=== PATIENT | female | born 1930 | race Caucasian/White ===

== ENCOUNTER 2019-01-28 20:47 | Emergency (ER) | payer MEDICARE, BC ==
[~2019-01-28] VITALS: Ht 165.1 cm; Wt 54.4 kg
--- OUTSIDE RECORDS SUMMARY | 2019-01-28 20:50 | XMS REPORT ---
Author [facility] Address Unknown Phone Unavailable Care Team Providers Care Bellows Filler Name Role Phone Unavailable Unavailable Payers Payer Name Policy Type Policy Number Effective Date Expiration Date Problems This patient has no known problems. Allergies, Adverse Reactions, Alerts Allergy Name Allergy Type Status Severity Reaction(s) Onset Date Inactive Date Treating Clinician Comments Penicillins DA Active DC 2018-07-25 00:00:00 lidocaine DA Active U 2018-07-25 00:00:00 ciprofloxacin DA Active U 2018-07-25 00:00:00 Penicillins DA Active DC 2018-03-16 00:00:00 lidocaine DA Active U 2018-03-16 00:00:00 ciprofloxacin DA Active U 2018-03-16 00:00:00 Penicillins DA Active DC 2015-08-28 00:00:00 lidocaine DA Active U 2015-07-24 00:00:00 ciprofloxacin DA Active U 2015-07-24 00:00:00 Medications This patient has no known medications. Results Test Description Test Time Test Comments Text Results Atomic Results Result Comments PROTHROMBIN TIME 2018-07-27 09:04:00 PROTHROMBIN TIME PATIENT (test code=PTP) 17.4 seconds 9.0-14.0 INTERNATIONAL NORMAL RATIO (test code=INR) 1.4 0.8-1.2 The therapeutic range for oral anticoagulant therapy formost indications is an international normalized ratio (INR)of between 2.0 and 3.0. The recommended therapeutic INRrange for various clinical situations is listed below: Clinical Situation INR range Pulmonary e mbolism treatment (2.0-3.0)Venous thrombosis treatmentVenous thrombosis prophylaxis (high risk surgery)Prevention of systemic embolism from: Acute myocardial infarction Valvular heart disease Atrial fibrillation Mechanical prosthetic heart valves (2.5-3.5) IS PATIENT ON ANTICOAGULANTS? YLIST ANTICOAGULANTS COUMADINCBC W/AUTO DIFF 2018-07-27 07:18:00* Test Item Value Reference Range Comments WHITE BLOOD CELL (test code=WBC) 5.8 K/mm3 4.5-12.5 RED BLOOD CELL (test code=RBC) 3.08 mill/mm3 3.7-5.2 HEMOGLOBIN (test code=HGB) 9.3 gram/dL 11.5-15.5 HEMATOCRIT (test code=HCT) 29.2 % 36.0-46.0 MEAN CELL VOLUME (test code=MCV) 94.8 fL 80-98 MEAN CELL HGB (test code=MCH) 30.2 picogram 27.0-33.0 MEAN CELL HGB CONCETRATION (test code=MCHC) 31.8 gram/dL 33.0-36.0 RED CELL DISTRIBUTION WIDTH (test code=RDW) 14.3 % 11.6-16.2 RED CELL DISTRIBUTION WIDTH SD (test code=RDW-SD) 49.2 fL 37.0-51.0 PLATELET COUNT (test code=PLT) 203 K/mm3 150-450 MEAN PLATELET VOLUME (test code=MPV) 10.7 fL 6.7-11.0 NEUTROPHIL % (test code=NT%) 55.4 % 39.0-69.0 IMMATURE GRANULOCYTE % (test code=IG%) 0.3 % 0.0-5.0 LYMPHOCYTE % (test code=LY%) 32.1 % 25.0-55.0 MONOCYTE % (test code=MO%) 10.2 % 0.0-10.0 EOSINOPHIL % (test code=EO%) 1.7 % 0.0-5.0 BASOPHIL % (test code=BA%) 0.3 % 0.0-1.0 NUCLEATED RBC % (test code=NRBC%) 0.0 % 0-0 NEUTROPHIL # (test code=NT#) 3.18 K/mm3 1.8-7.7 IMMATURE GRANULOCYTE # (test code=IG#) 0.02 x10 3/uL 0-0.03 LYMPHOCYTE # (test code=LY#) 1.85 K/mm3 1.0-5.0 MONOCYTE # (test code=MO#) 0.59 K/mm3 0-0.8 EOSINOPHIL # (test code=EO#) 0.10 K/mm3 0.0-0.5 BASOPHIL # (test code=BA#) 0.02 K/mm3 0.0-0.2 NUCLEATED RBC # (test code=NRBC#) 0.00 K/mm3 0.0-0.1 MANUAL DIFF REQUIRED (test code=MDIFF) NO BASIC METABOLIC [id number] 07:12:00* Test Item Value Reference Range Comments SODIUM (test code=NA) 142 mmol/L 136-145 POTASSIUM (test code=K) 4.4 mmol/L 3.5-5.1 CHLORIDE (test code=CL) 112.0 mmol/L 98-107 CARBON DIOXIDE (test code=CO2) 25.0 mmol/L 21-32 ANION GAP (test code=GAP) 9.4 10-20 GLUCOSE (test code=GLU) 86 mg/dL 74-106 BLOOD UREA NITROGEN (test code=BUN) 23 mg/dL 7-18 GLOMERULAR FILTRATION RATE (test code=GFR) > 60 mL/min >=60 Estimated GFR by using Modified MDRD formula.Chronic kidney disease is defined as either kidney damageor GFR <60 mL/min/1.73 m2 for >3 months. CREATININE (test code=CREAT) 0.70 mg/dL 0.55-1.02 Note change in reference range due to change in reagent. BUN/CREATININE RATIO (test code=BUN/CREA) 31.4 10-20 CALCIUM (test code=CA) 8.7 mg/dL 8.5-10.1 - RETROPERITONEAL [id number] 21:30:00 Name: LAMINE LAUGHLIN [facility] : 1930 Age/S: 88 / F [address] [facility]: [id number] Loc: FLO [place] [address] Phys: DandreHoracio Acct: [id number] Dis Date: Status: ADM IN PHONE #: [phone] Exam Date: 07/26/20181954 FAX #: [phone] Reason: hematuria EXAMS: CPT CODE: [id number] US RETROPERITONEAL COM [id number] EXAM: Ultrasound of the retroperitoneum; INFORMATION: Hematuria; FINDINGS: The kidneys are of normal size and shape. They show small parapelvic cysts; no evidence of hydronephrosis. No evidence of stones. No parenchymal abnormalities. The right kidney measures 9.6 x 5 x 4.1 cm, with a parenchymal thickness of 1.1 cm. The left kidney measures 10.3 x 4.2 x 4.1 cm, with a parenchymal thickness of 0.9 cm. The urinary bladder is unremarkable. IMPRESSION: 1. Parapelvic cysts bilat erally. 2. Otherwise, unremarkable renal ultrasound; no evidence of ston es, hydronephrosis or mass lesions. at 2130 Reported and signed by: Epi Dawson CC: George Qureshi; Germain Jaffe MD; Horacio Amos M.D. Technologist: Zoila Clemons Trnscb Da te/Time: 07/26/2018 (2129) [email or web address] Orig Print D/T: S: 0 07/26/2018 (2132) Probe: PAGE 1 Signed Report - XR CHEST 1 [id number] 08:19:00 FAX: George Amor MD [phone] [place]: B St: ADM FAX: Germain Oliveira MD [phone] FAX: Isi Dooley MD [phone] --------- Name: LAMINE LAUGHLIN [facility] : 1930 Age/S: 88/F [address] it #: [id number] Loc: V.3032 FLO [place] [address] Phys: Isi Dooley MD Acct: [id number] Dis Date: Status: ADM IN ONE #: [phone] Exam Date: 07/26/2018 0754 FAX #: [phone] Reason: CHEST PAIN EXAMS: CPT CODE: [id number] XR CHEST 1 V 57949 HISTORY: Chest pain. COMPARISON: March 16, 2018. 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 No acute infiltrates, effusion or congestion. Lung scar ring. Cardiomegaly with elevated right hemidiaphragm. IMP RESSION: No acute infiltrates, effusion or congestion. at 0819 Reported and signed by: Clayton Doshi M.D. CC: George Qureshi; Germain Jaffe MD; Isi Dooley MD Technologist: CONG DOYLE RT(R) Trnscrd Date/Time/By: 07/26/2018 (08) : By: [email or web address] Orig Print D/T: S: 07/26/2018 (0822) PAGE 1 Signed Report COMPREHENSIVE METABOLIC [id number] 06:22:00* Test Item Value Reference Range Comments SODIUM (test code=NA) 143 mmol/L 136-145 POTASSIUM (test code=K) 4.0 mmol/L 3.5-5.1 CHLORIDE (test code=CL) 111.0 mmol/L 98-107 CARBON DIOXIDE (test code=CO2) 26.0 mmol/L 21-32 ANION GAP (test code=GAP) 10.0 10-20 GLUCOSE (test code=GLU) 83 mg/dL 74-106 BLOOD UREA NITROGEN (test code=BUN) 20 mg/dL 7-18 GLOMERULAR FILTRATION RATE (test code=GFR) > 60 mL/min >=60 Estimated GFR by using Modified MDRD formula.Chronic kidney disease is defined as either kidney damageor GFR <60 mL/min/1.73 m2 for >3 months. CREATININE (test code=CREAT) 0.70 mg/dL 0.55-1.02 Note change in reference range due to change in reagent. BUN/CREATININE RATIO (test code=BUN/CREA) 27.5 10-20 TOTAL PROTEIN (test code=PROT) 6.2 gram/dL 6.4-8.2 ALBUMIN (test code=ALB) 2.6 g/dL 3.4-5.0 GLOBULIN (test code=GLOB) 3.6 gram/dL 2.7-4.2 ALBUMIN/GLOBULIN RATIO (test code=A/G) 0.7 0.75-1.50 CALCIUM (test code=CA) 8.9 mg/dL 8.5-10.1 BILIRUBIN TOTAL (test code=BILT) 0.60 mg/dL 0.0-1.0 SGOT/AST (test code=AST) 18 IUnit/L 15-37 SGPT/ALT (test code=ALT) 16 IUnit/L 12-78 ALKALINE PHOSPHATASE TOTAL (test code=ALKP) 106 IUnit/L 45-117 Note change in reference range due to change in reagent. COMPREHENSIVE METABOLIC [id number] 06:10:00* Test Item Value Reference Range Comments SODIUM (test code=NA) 143 mmol/L 136-145 POTASSIUM (test code=K) 4.0 mmol/L 3.5-5.1 CHLORIDE (test code=CL) 111.0 mmol/L 98-107 CARBON DIOXIDE (test code=CO2) mmol/L 21-32 ANION GAP (test code=GAP) 10-20 GLUCOSE (test code=GLU) mg/dL 74-106 BLOOD UREA NITROGEN (test code=BUN) mg/dL 7-18 GLOMERULAR FILTRATION RATE (test code=GFR) mL/min >=60 CREATININE (test code=CREAT) mg/dL 0.55-1.02 BUN/CREATININE RATIO (test code=BUN/CREA) 10-20 TOTAL PROTEIN (test code=PROT) gram/dL 6.4-8.2 ALBUMIN (test code=ALB) g/dL 3.4-5.0 GLOBULIN (test code=GLOB) gram/dL 2.7-4.2 ALBUMIN/GLOBULIN RATIO (test code=A/G) 0.75-1.50 CALCIUM (test code=CA) mg/dL 8.5-10.1 BILIRUBIN TOTAL (test code=BILT) mg/dL 0.0-1.0 SGOT/AST (test code=AST) IUnit/L 15-37 SGPT/ALT (test code=ALT) IUnit/L 12-78 ALKALINE PHOSPHATASE TOTAL (test code=ALKP) IUnit/L 45-117 PROTHROMBIN [id number] 06:10:00* Test Item Value Reference Range Comments PROTHROMBIN TIME PATIENT (test code=PTP) 20.4 seconds 9.0-14.0 INTERNATIONAL NORMAL RATIO (test code=INR) 1.7 0.8-1.2 The therapeutic range for oral anticoagulant therapy formost indications is an international normalized ratio (INR)of between 2.0 and 3.0. The recommended therapeutic INRrange for various clinical situations is listed below: Clinical Situation INR range Pulmonary e mbolism treatment (2.0-3.0)Venous thrombosis treatmentVenous thrombosis prophylaxis (high risk surgery)Prevention of systemic embolism from: Acute myocardial infarction Valvular heart disease Atrial fibrillation Mechanical prosthetic heart valves (2.5-3.5) IS PATIENT ON ANTICOAGULANTS? NSPECIMEN COMMENTS: COUMADINTHROMBOPLASTIN TIME [id number] 06:10:00* Test Item Value Reference Range Comments THROMBOPLASTIN TIME PARTIAL (test code=PTT) 31.8 seconds 25.0-36.5 IS PATIENT ON ANTICOAGULANTS? NSPECIMEN COMMENTS: COUMADINCBC W/AUTO DIFF 2018-07-26 05:58:00* Test Item Value Reference Range Comments WHITE BLOOD CELL (test code=WBC) 5.5 K/mm3 4.5-12.5 RED BLOOD CELL (test code=RBC) 3.20 mill/mm3 3.7-5.2 HEMOGLOBIN (test code=HGB) 9.4 gram/dL 11.5-15.5 HEMATOCRIT (test code=HCT) 31.0 % 36.0-46.0 MEAN CELL VOLUME (test code=MCV) 96.9 fL 80-98 MEAN CELL HGB (test code=MCH) 29.4 picogram 27.0-33.0 MEAN CELL HGB CONCETRATION (test code=MCHC) 30.3 gram/dL 33.0-36.0 RED CELL DISTRIBUTION WIDTH (test code=RDW) 14.2 % 11.6-16.2 RED CELL DISTRIBUTION WIDTH SD (test code=RDW-SD) 50.2 fL 37.0-51.0 PLATELET COUNT (test code=PLT) 198 K/mm3 150-450 MEAN PLATELET VOLUME (test code=MPV) 10.4 fL 6.7-11.0 NEUTROPHIL % (test code=NT%) 57.3 % 39.0-69.0 IMMATURE GRANULOCYTE % (test code=IG%) 0.4 % 0.0-5.0 LYMPHOCYTE % (test code=LY%) 29.3 % 25.0-55.0 MONOCYTE % (test code=MO%) 10.7 % 0.0-10.0 EOSINOPHIL % (test code=EO%) 1.8 % 0.0-5.0 BASOPHIL % (test code=BA%) 0.5 % 0.0-1.0 NUCLEATED RBC % (test code=NRBC%) 0.0 % 0-0 NEUTROPHIL # (test code=NT#) 3.17 K/mm3 1.8-7.7 IMMATURE GRANULOCYTE # (test code=IG#) 0.02 x10 3/uL 0-0.03 LYMPHOCYTE # (test code=LY#) 1.62 K/mm3 1.0-5.0 MONOCYTE # (test code=MO#) 0.59 K/mm3 0-0.8 EOSINOPHIL # (test code=EO#) 0.10 K/mm3 0.0-0.5 BASOPHIL # (test code=BA#) 0.03 K/mm3 0.0-0.2 NUCLEATED RBC # (test code=NRBC#) 0.00 K/mm3 0.0-0.1 - XR ANKLE 3 + V [id number] 15:52:00 FAX: George Amor MD [phone] [place]: St: ADM FAX: Germain Oliveira MD [phone] FAX: Isi Dooley MD [phone] Name: LAMINE LAUGHLIN [facility] : 1930 Age/S: 88/F [address] Unit #: [id number] Loc: [place] [address] Phys: Isi Dooley MD Acct: [id number] Dis Date: Status: ADM IN ONE #: [phone] Exam Date: 07/25/2018 1515 FAX #: [phone] Reason: PAIN, SWELLING EXAMS: CPT CODE: [id number] XR ANKLE 3 + V RT 93332 CLINICAL HISTO RY: PAIN, SWELLING TECHNIQUE: AP, oblique, and lateral views of th e right ankle COMPARISON: None FINDINGS: Hardware is seen in the distal tibial shaft. No evidence of hardware lo osening. Bone mineralization is decreased. Degenerative changes ar e present in the ankle. There is swelling of the soft tissues but no joint effusion. No obvious fracture is seen. There is lateral subluxation of the talus. Extensive vascular calcifications are present. IMPRESSION: Degenerative changes in the right ankle with lateral subluxation of the talus. No acute fracture is evident however detection is somewhat limited due to decreased bone mi neralization. Soft tissue swelling around the right ankle but no joint effusion. Electronically Signed by Zane Gallego MD on 2018 at 1552 Reported and signed by: Zane Gallego MD CC: George Qureshi; Germain Jaffe MD; Isi Dooley MD Technologist: ELEAZAR GOLDMAN RT(R) Trnscrd Date/Time/By: (4198) : By: [email or web address] Orig Print D/T: S: 07/25/2018 (2294) PAGE 1 Signed Report PROTHROMBIN [id number] 12:55:00* Test Item Value Reference Range Comments PROTHROMBIN TIME PATIENT (test code=PTP) 71.2 seconds 9.0-14.0 RESULT VERIFIED BY REPEAT ANALYSIS INTERNATIONAL NORMAL RATIO (test code=INR) 5.7 0.8-1.2 Results called to [id number] by ANGELA 07/25/18 1254Critical results verified and read back by Nurse? YThe therapeutic range for oral anticoagulant therapy formost indications is an international normalized ratio (INR)of between 2.0 and 3.0. The recommended therapeutic INRrange for various clinical situations is listed below: Clinical Situatio n INR range Pulmonary embolism treatment (2.0-3.0)Venous thrombosis treatmentVenous thrombosis prophylaxis (high risk surgery)Prevention of systemic embolism from: Acute myocardial infarction Valvular heart disease Atrial fibrillation Mechanical prosthetic heart valves (2.5-3.5) IS PATIENT ON ANTICOAGULANTS? NTHROMBOPLASTIN TIME [id number] 12:55:00* Test Item Value Reference Range Comments THROMBOPLASTIN TIME PARTIAL (test code=PTT) 53.6 seconds 25.0-36.5 IS PATIENT ON ANTICOAGULANTS? NURINALYSIS [id number] 12:26:00* Test Item Value Reference Range Comments UA COLOR (test code=COLU) RED YELLOW UA APPEARANCE (test code=APPU) TURBID CLEAR UA GLUCOSE DIPSTICK (test code=DGLUU) NEGATIVE mg/dL NEGATIVE UA BILIRUBIN DIPSTICK (test code=BILU) NEGATIVE NEGATIVE UA KETONE DIPSTICK (test code=KETU) 1+ mg/dL NEGATIVE UA SPECIFIC GRAVITY (test code=SGU) 1.020 1.001-1.035 UA BLOOD DIPSTICK (test code=ODETTE) 3+ (Large) NEGATIVE UA PH DIPSTICK (test code=ZORA) 6.5 5.0-8.0 UA PROTEIN DIPSTICK (test code=PROU) >=300 (3+) mg/dL Neg-15 UA UROBILINIOGEN DIPSTICK (test code=URO) 4.0 (2+) mg/dL 0.0-0.2 UA NITRITE DIPSTICK (test code=HARISH) POSITIVE NEGATIVE UA LEUKOCYTE ESTERASE W REFLEX (test code=LEUUR) 2+ NEGATIVE UA WBC (test code=WBCU) >50 #/HPF 0-5 UA RBC (test code=RBCU) >20 #/HPF 0-5 UA EPITHELIAL CELLS (test code=EPIU) Few (2-5/hpf) per HPF FEW UA BACTERIA (test code=BACU) FEW #/HPF NONE UA MUCUS (test code=MUCU) FEW #/LPF FEW URINALYSIS [id number] 12:04:00* Test Item Value Reference Range Comments UA COLOR (test code=COLU) RED YELLOW UA APPEARANCE (test code=APPU) TURBID CLEAR UA GLUCOSE DIPSTICK (test code=DGLUU) NEGATIVE mg/dL NEGATIVE UA BILIRUBIN DIPSTICK (test code=BILU) NEGATIVE NEGATIVE UA KETONE DIPSTICK (test code=KETU) 1+ mg/dL NEGATIVE UA SPECIFIC GRAVITY (test code=SGU) 1.020 1.001-1.035 UA BLOOD DIPSTICK (test code=ODETTE) 3+ (Large) NEGATIVE UA PH DIPSTICK (test code=ZORA) 6.5 5.0-8.0 UA PROTEIN DIPSTICK (test code=PROU) >=300 (3+) mg/dL Neg-15 UA UROBILINIOGEN DIPSTICK (test code=URO) 4.0 (2+) mg/dL 0.0-0.2 UA NITRITE DIPSTICK (test code=HARISH) POSITIVE NEGATIVE UA LEUKOCYTE ESTERASE W REFLEX (test code=LEUUR) 2+ NEGATIVE UA WBC (test code=WBCU) per HPF 0-5 URINALYSIS [id number] 12:04:00* Test Item Value Reference Range Comments UA COLOR (test code=COLU) RED YELLOW UA APPEARANCE (test code=APPU) TURBID CLEAR UA GLUCOSE DIPSTICK (test code=DGLUU) NEGATIVE mg/dL NEGATIVE UA BILIRUBIN DIPSTICK (test code=BILU) NEGATIVE NEGATIVE UA KETONE DIPSTICK (test code=KETU) 1+ mg/dL NEGATIVE UA SPECIFIC GRAVITY (test code=SGU) 1.020 1.001-1.035 UA BLOOD DIPSTICK (test code=ODETTE) 3+ (Large) NEGATIVE UA PH DIPSTICK (test code=ZORA) 6.5 5.0-8.0 UA PROTEIN DIPSTICK (test code=PROU) >=300 (3+) mg/dL Neg-15 UA UROBILINIOGEN DIPSTICK (test code=URO) 4.0 (2+) mg/dL 0.0-0.2 UA NITRITE DIPSTICK (test code=HARISH) POSITIVE NEGATIVE UA LEUKOCYTE ESTERASE W REFLEX (test code=LEUUR) 2+ NEGATIVE UA WBC (test code=WBCU) per HPF 0-5 CBC W/AUTO [id number] 11:14:00* Test Item Value Reference Range Comments WHITE BLOOD CELL (test code=WBC) 6.3 K/mm3 4.5-12.5 RED BLOOD CELL (test code=RBC) 3.68 mill/mm3 3.7-5.2 HEMOGLOBIN (test code=HGB) 10.9 gram/dL 11.5-15.5 HEMATOCRIT (test code=HCT) 35.9 % 36.0-46.0 MEAN CELL VOLUME (test code=MCV) 97.6 fL 80-98 MEAN CELL HGB (test code=MCH) 29.6 picogram 27.0-33.0 MEAN CELL HGB CONCETRATION (test code=MCHC) 30.4 gram/dL 33.0-36.0 RED CELL DISTRIBUTION WIDTH (test code=RDW) 14.3 % 11.6-16.2 RED CELL DISTRIBUTION WIDTH SD (test code=RDW-SD) 51.2 fL 37.0-51.0 PLATELET COUNT (test code=PLT) 219 K/mm3 150-450 MEAN PLATELET VOLUME (test code=MPV) 10.7 fL 6.7-11.0 NEUTROPHIL % (test code=NT%) 67.4 % 39.0-69.0 IMMATURE GRANULOCYTE % (test code=IG%) 0.3 % 0.0-5.0 LYMPHOCYTE % (test code=LY%) 22.7 % 25.0-55.0 MONOCYTE % (test code=MO%) 8.1 % 0.0-10.0 EOSINOPHIL % (test code=EO%) 1.3 % 0.0-5.0 BASOPHIL % (test code=BA%) 0.2 % 0.0-1.0 NUCLEATED RBC % (test code=NRBC%) 0.0 % 0-0 NEUTROPHIL # (test code=NT#) 4.25 K/mm3 1.8-7.7 IMMATURE GRANULOCYTE # (test code=IG#) 0.02 x10 3/uL 0-0.03 LYMPHOCYTE # (test code=LY#) 1.43 K/mm3 1.0-5.0 MONOCYTE # (test code=MO#) 0.51 K/mm3 0-0.8 EOSINOPHIL # (test code=EO#) 0.08 K/mm3 0.0-0.5 BASOPHIL # (test code=BA#) 0.01 K/mm3 0.0-0.2 NUCLEATED RBC # (test code=NRBC#) 0.00 K/mm3 0.0-0.1 MANUAL DIFF REQUIRED (test code=MDIFF) NO COMPREHENSIVE METABOLIC [id number] 11:01:00* Test Item Value Reference Range Comments SODIUM (test code=NA) 142 mmol/L 136-145 POTASSIUM (test code=K) 4.1 mmol/L 3.5-5.1 CHLORIDE (test code=CL) 110.0 mmol/L 98-107 CARBON DIOXIDE (test code=CO2) 25.0 mmol/L 21-32 ANION GAP (test code=GAP) 11.1 10-20 GLUCOSE (test code=GLU) 119 mg/dL 74-106 BLOOD UREA NITROGEN (test code=BUN) 25 mg/dL 7-18 GLOMERULAR FILTRATION RATE (test code=GFR) > 60 mL/min >=60 Estimated GFR by using Modified MDRD formula.Chronic kidney disease is defined as either kidney damageor GFR <60 mL/min/1.73 m2 for >3 months. CREATININE (test code=CREAT) 0.80 mg/dL 0.55-1.02 Note change in reference range due to change in reagent. BUN/CREATININE RATIO (test code=BUN/CREA) 32.2 10-20 TOTAL PROTEIN (test code=PROT) 7.2 gram/dL 6.4-8.2 ALBUMIN (test code=ALB) 3.0 g/dL 3.4-5.0 GLOBULIN (test code=GLOB) 4.2 gram/dL 2.7-4.2 ALBUMIN/GLOBULIN RATIO (test code=A/G) 0.7 0.75-1.50 CALCIUM (test code=CA) 9.2 mg/dL 8.5-10.1 BILIRUBIN TOTAL (test code=BILT) 0.70 mg/dL 0.0-1.0 SGOT/AST (test code=AST) 21 IUnit/L 15-37 SGPT/ALT (test code=ALT) 22 IUnit/L 12-78 ALKALINE PHOSPHATASE TOTAL (test code=ALKP) 118 IUnit/L 45-117 Note change in reference range due to change in reagent. COMPREHENSIVE METABOLIC [id number] 10:52:00* Test Item Value Reference Range Comments SODIUM (test code=NA) 142 mmol/L 136-145 POTASSIUM (test code=K) 4.1 mmol/L 3.5-5.1 CHLORIDE (test code=CL) 110.0 mmol/L 98-107 CARBON DIOXIDE (test code=CO2) mmol/L 21-32 ANION GAP (test code=GAP) 10-20 GLUCOSE (test code=GLU) mg/dL 74-106 BLOOD UREA NITROGEN (test code=BUN) mg/dL 7-18 GLOMERULAR FILTRATION RATE (test code=GFR) mL/min >=60 CREATININE (test code=CREAT) mg/dL 0.55-1.02 BUN/CREATININE RATIO (test code=BUN/CREA) 10-20 TOTAL PROTEIN (test code=PROT) gram/dL 6.4-8.2 ALBUMIN (test code=ALB) g/dL 3.4-5.0 GLOBULIN (test code=GLOB) gram/dL 2.7-4.2 ALBUMIN/GLOBULIN RATIO (test code=A/G) 0.75-1.50 CALCIUM (test code=CA) mg/dL 8.5-10.1 BILIRUBIN TOTAL (test code=BILT) mg/dL 0.0-1.0 SGOT/AST (test code=AST) IUnit/L 15-37 SGPT/ALT (test code=ALT) IUnit/L 12-78 ALKALINE PHOSPHATASE TOTAL (test code=ALKP) IUnit/L 45-117 URINALYSIS [id number] 11:35:00* Test Item Value Reference Range Comments UA COLOR (test code=COLU) RED YELLOW UA APPEARANCE (test code=APPU) TURBID CLEAR UA GLUCOSE DIPSTICK (test code=DGLUU) TRACE mg/dL NEGATIVE UA BILIRUBIN DIPSTICK (test code=BILU) 3+ (LARGE) NEGATIVE UA KETONE DIPSTICK (test code=KETU) 1+ mg/dL NEGATIVE UA SPECIFIC GRAVITY (test code=SGU) 1.015 1.001-1.035 UA BLOOD DIPSTICK (test code=ODETTE) 3+ (Large) NEGATIVE UA PH DIPSTICK (test code=ZORA) 7.0 5.0-8.0 UA PROTEIN DIPSTICK (test code=PROU) >=300 (3+) mg/dL Neg-15 UA UROBILINIOGEN DIPSTICK (test code=URO) >=8.0 mg/dL 0.0-0.2 UA NITRITE DIPSTICK (test code=HARISH) POSITIVE NEGATIVE UA LEUKOCYTE ESTERASE W REFLEX (test code=LEUUR) 3+ NEGATIVE UA WBC (test code=WBCU) TNTC per HPF 0-5 IN SOME URINARY TRACT INFECTIONS THERE MAY NOT BE ENOUGHWBCs IN THE URINE TO TRIGGER AN AUTOMATIC (REFLEX) URINECULTURE. A SEPERATE ORDER FOR URINE CULTURE IS RECOMMENDEDIF THERE IS STRONG SUPPORT FOR A URINARY TRACT INFECTIONCLINICALLY. UA RBC (test code=RBCU) TNTC per HPF 0-5 UA EPITHELIAL CELLS (test code=EPIU) None seen per HPF Few UA BACTERIA (test code=BACU) FEW per HPF NONE Urine Source? Clean Catch- CT ABD PELVIS W/O [id number] 11:21:00 Name: LAUGHLINALMINE MELANIA [facility] : 1930 Age/S: 88 / F [address] [facility] Unit #: [id number] Loc: FLO [place] [address] Phys: Kristin Rios DO Acct: [id number] Di s Date: Status: REG ER PHONE #: Exam Date: 07/20/2018 1051 FAX #: Reason: HEMATURIA EXAMS: CPT CODE: [id number] CT ABD PELVIS W/O CONT 52368 HISTORY: Hematuria. COMPARISON: CT scan from February 10, 2010. CT abdomen and pelvis: Stone protocol. Automated exposure control. CT of abdomen : Lung bases demonstrating scarring and atelectasis. Hepatic parenchyma is unremarkable on this noncontrast study. Moderately distended gallbladder with gallstones. Unremarkable spleen. Stom ach is distended incompletely and is limited with retrocardiac paraesophag eal hiatal hernia noted. Noncontrast pancreas is markedly atrophie d. Adrenals are hyperplastic bilaterally and this is unchanged from 2010 on the left. Hyperplasia on the lateral right is new. Both kidneys demonstrating multiple parapelvic cysts which are unchanged from 010. Hyperdensity within the parapelvic cyst from previous exam may sugge st hemorrhage or debris. No hydroureteronephrosis is noted. No calyceal stones are visible. No pathologic adenopathy. Heavy atherosclerot ic change of the abdominal and pelvic vasculature. Ectatic and heavily at herosclerotic aorta without aneurysm. IVC filter caudal to the level of t he renal veins. No bowel obstruction or colitis or diverticu litis or enteritis. Diverticulosis. CT PELVIS: Appendix is not visible with certainty but no inflammatory changes. Ext ensive sigmoid diverticulosis without diverticulitis. Urinary blad liset is difficult to assess as is being obscured by artifact from patient's hip prosthesis on the right side. Distal ureters are also difficult to a ssess of the duodenum obscured by artifact. Patient appears to be post hy sterectomy but difficult to assess due to artifact. No free fluid or free air. No pelvic pathologic adenopathy. PAGE 1 Signed Report (CONTINUED) Name: TRUMANLAMINE MELANIA [facility] : 1930 Age[facility]S: 88 / F [address] [facility]: [id number] Loc: [place] [address] Phys: Pebbles Rios DO Acct: [id number] Dis Date: Status: REG ER PHONE #: [phone] Exam Date: 07/20/2018 1051 FAX #: [phone] Reason: HEMATURIA EXAMS: CPT CODE: [id number] CT ABD PELVIS W/O CONT 95992 <Continued> Subcutaneous tissues and the musculature are normal in appearance. No lytic or blastic lesions are noted within the bony skeleton. Old fracture of arterial the right inferior pubic bone. Hip prosthesis on the right resulting in extensive streak artifact. DJD. IMPRESSION: Multiple bilateral parapelvic cyst noted again with hyperdensity which may suggest debris or hemorrhage within the parapelvic cyst. No calyceal stones. No hydroureteronephrosis. The distal ureters are obscured by artifact from patient's hip prosthesis as well as the urinary bladder however the urinary bladder appears within normal limits in the portions visualized. No free fluid or free air. Markedly distended gallbladder with multiple noncalcified stones. No bowel obstruction. Appendix is not visible. Sigmoid diverticulosis. at 1121 Reported and signed by: Clayton Doshi M.D. CC: Germain Jaffe MD; Pebbles Rios DO Technologist:Bowen Bucio RT(R),(MR),(CT) CTDI: DLP: Trnscb Date/Time: 07/20/2018 (1121) [id number] Orig Print D/T: S: 07/20/2018 (1125) CTDI: DLP: PAGE 2 Signed Report URINALYSIS [id number] 11:13:00* Test Item Value Reference Range Comments UA COLOR (test code=COLU) RED YELLOW UA APPEARANCE (test code=APPU) TURBID CLEAR UA GLUCOSE DIPSTICK (test code=DGLUU) TRACE mg/dL NEGATIVE UA BILIRUBIN DIPSTICK (test code=BILU) 3+ (LARGE) NEGATIVE UA KETONE DIPSTICK (test code=KETU) 1+ mg/dL NEGATIVE UA SPECIFIC GRAVITY (test code=SGU) 1.015 1.001-1.035 UA BLOOD DIPSTICK (test code=ODETTE) 3+ (Large) NEGATIVE UA PH DIPSTICK (test code=ZORA) 7.0 5.0-8.0 UA PROTEIN DIPSTICK (test code=PROU) >=300 (3+) mg/dL Neg-15 UA UROBILINIOGEN DIPSTICK (test code=URO) >=8.0 mg/dL 0.0-0.2 UA NITRITE DIPSTICK (test code=HARISH) POSITIVE NEGATIVE UA LEUKOCYTE ESTERASE W REFLEX (test code=LEUUR) 3+ NEGATIVE UA WBC (test code=WBCU) per HPF 0-5 Urine Source? Clean CatchBASIC METABOLIC [id number] 11:05:00* Test Item Value Reference Range Comments SODIUM (test code=NA) 138 mmol/L 136-145 POTASSIUM (test code=K) 4.0 mmol/L 3.5-5.1 CHLORIDE (test code=CL) 108.0 mmol/L 98-107 CARBON DIOXIDE (test code=CO2) 24.0 mmol/L 21-32 ANION GAP (test code=GAP) 10.0 10-20 GLUCOSE (test code=GLU) 96 mg/dL 74-106 BLOOD UREA NITROGEN (test code=BUN) 28 mg/dL 7-18 GLOMERULAR FILTRATION RATE (test code=GFR) > 60 mL/min >=60 Estimated GFR by using Modified MDRD formula.Chronic kidney disease is defined as either kidney damageor GFR <60 mL/min/1.73 m2 for >3 months. CREATININE (test code=CREAT) 0.80 mg/dL 0.55-1.02 Note change in reference range due to change in reagent. BUN/CREATININE RATIO (test code=BUN/CREA) 35.6 10-20 CALCIUM (test code=CA) 9.7 mg/dL 8.5-10.1 HEPATIC FUNCTION [id number] 11:05:00* Test Item Value Reference Range Comments TOTAL PROTEIN (test code=PROT) 7.3 gram/dL 6.4-8.2 ALBUMIN (test code=ALB) 3.0 g/dL 3.4-5.0 GLOBULIN (test code=GLOB) 4.3 gram/dL 2.7-4.2 ALBUMIN/GLOBULIN RATIO (test code=A/G) 0.7 0.75-1.50 BILIRUBIN TOTAL (test code=BILT) 0.80 mg/dL 0.0-1.0 BILIRUBIN DIRECT (test code=BILD) 0.30 mg/dL 0.0-0.20 SGOT/AST (test code=AST) 22 IUnit/L 15-37 SGPT/ALT (test code=ALT) 26 IUnit/L 12-78 ALKALINE PHOSPHATASE TOTAL (test code=ALKP) 132 IUnit/L 45-117 Note change in reference range due to change in reagent. [id number] 11:05:00* Test Item Value Reference Range Comments LIPASE (test code=LIP) 54 U/L 73.0-393.0 CBC W/O [id number] 10:56:00* Test Item Value Reference Range Comments WHITE BLOOD CELL (test code=WBC) 5.4 K/mm3 4.5-12.5 RED BLOOD CELL (test code=RBC) 4.02 mill/mm3 3.7-5.2 HEMOGLOBIN (test code=HGB) 12.0 gram/dL 11.5-15.5 HEMATOCRIT (test code=HCT) 38.6 % 36.0-46.0 MEAN CELL VOLUME (test code=MCV) 96.0 fL 80-98 MEAN CELL HGB (test code=MCH) 29.9 picogram 27.0-33.0 MEAN CELL HGB CONCETRATION (test code=MCHC) 31.1 gram/dL 33.0-36.0 RED CELL DISTRIBUTION WIDTH (test code=RDW) 14.1 % 11.6-16.2 PLATELET COUNT (test code=PLT) 196 K/mm3 150-450 MEAN PLATELET VOLUME (test code=MPV) 10.6 fL 6.7-11.0
[2019-01-28] MEDS ORDERED: TRAMADOL HCL 50 MG TAB PO ONE (21:15)
--- NOTE | 2019-01-28 22:38 | Diagnostic Imaging Report ---
X-ray right hip AP and lateral views and AP pelvis radiograph; X-Ray AP, lateral views of the proximal and distal right femur HISTORY: Pain. COMPARISON: None available. FINDINGS: Bones: No acute displaced fracture. Low bone mass. 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 An additional curvilinear 7 mm fragment projects at the inferior aspect of the acetabular cup. Osseous remodeling about the right arthroplasty hardware. Partially visualized left knee total arthroplasty hardware without obvious abnormality. 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 Soft tissues: The soft tissues appear unremarkable. IMPRESSION: 1. 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 2. 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 3. Low bone mass. Signed by: Shahid Bruno DO on 01/28/2019 10:34 PM
== END 2019-01-28 23:50 | disposition home or self-care (01) ==
LOC: ER 20:47
DX: M25.551 Pain in right hip (principal); M25.552 Pain in left hip; Z88.5 Allergy status to narcotic agent; Z88.0 Allergy status to penicillin; Z88.8 Allergy status to other drugs, medicaments and biological substances; I10 Essential (primary) hypertension; Z95.810 Presence of automatic (implantable) cardiac defibrillator; Z96.652 Presence of left artificial knee joint; Z96.643 Presence of artificial hip joint, bilateral; Z82.49 Family history of ischemic heart disease and other diseases of the circulatory system
CPT/HCPCS: 99283